=== PATIENT | male | born 2000 | race Caucasian/White ===

== ENCOUNTER 2023-02-15 04:00 | Emergency (ER) | payer SELFPAY ==
[2023-02-15 04:08] VITALS: O2SAT 99
[2023-02-15 04:15] VITALS: BP 136/82; PULSE 125; RESP 16; O2SAT 100
[2023-02-15 04:38] VITALS: O2SAT 100
[2023-02-15 05:03] VITALS: O2SAT 100
[2023-02-15 05:15] VITALS: BP 129/74; PULSE 96; RESP 16; O2SAT 100
[2023-02-15 05:32] VITALS: O2SAT 100
--- NOTE | 2023-02-15 05:41 | ED.WOUNDLAC ---
HPI - Wound/Laceration General Chief Complaint: Wound/Laceration Stated Complaint: laceration Time Seen by Provider: 02/15/23 04:32 History of Present Illness HPI narrative: This is a 22-year-old male, with no significant past medical history, presenting to the emergency department with a laceration to the back of the scalp. The patient states he was playfully wrestling with a friend, when he fell, striking the back of his head on the corner of a table. He did not lose consciousness. He complains of 4/10 occipital scalp pain, described as dull and nonradiating. Related Data Allergies Allergy/AdvReac Type Severity Reaction Status Date / Time No Known Allergies Allergy Verified 02/15/23 04:02 Review of Systems Review of Systems: CONSTITUTIONAL: Denies fever, chills, or sweats. EYES: Denies visual changes, redness, or discharge. CARDIOVASCULAR: Denies chest pain, palpitations, or edema. RESPIRATORY: Denies cough or dyspnea. GASTROINTESTINAL: Denies abdominal pain, nausea, vomiting, or diarrhea. GENITOURINARY: Denies dysuria or hematuria. SKIN: Laceration of scalp denies rash or itching. MUSCULOSKELETAL: Denies back pain, joint pain, or myalgia. NEUROLOGIC: Denies headache, numbness, dizziness, or weakness. PSYCHIATRIC: Denies anxiety or depression. [facility] Past Medical History Medical History (Updated 02/16/23 @ 00:00 by Christopher Christensen) No significant past medical history Surgical History Surgical History (Updated 02/15/23 @ 05:47 by Bobby Bridges MD) No significant past surgical history Social History Social History (Updated 02/15/23 @ 05:47 by Bobby Bridges MD) Smoking status: Never smoker Alcohol intake: never Substance use: never Exam Narrative: GENERAL: Well-developed, well-nourished, and in no acute distress. HEAD: Normocephalic, a 4 cm laceration is noted over the occipital scalp extending through subcutaneous tissue. There does not appear to be interruption of the g[place]. There is no noted foreign objects EYES: PERRLA and EOMI. NECK: Supple. No midline spine tenderness to palpation, no step-off or crepitus CHEST: Clear to auscultation. No respiratory distress. No wheezes rales or rhonchi HEART: Regular rate and rhythm. No murmur heard. Normal peripheral pulses. ABDOMEN: Soft, nontender, nondistended, normal active bowel sounds. EXTREMITIES: Normal range of motion. No edema. SKIN: Warm, dry, no rash. NEURO: Alert and oriented x3. Moving all 4 limbs purposefully. PSYCH: Normal mood and affect. Course Course Emergency Course: 05:35 - Laceration was repaired. Please see procedure note. The patient's exam is reassuring. In the absence of loss of consciousness, my suspicion for intracranial injury is low at this time. The patient's tetanus vaccination is up-to-date. Will discharge. I advised the patient to follow-up in 14 days for staple removal. Discussed return and emergency precautions including signs/symptoms of intracranial hemorrhage and wound infection. The patient voiced understanding and is comfortable with the plan. All questions answered to his satisfaction Vital Signs Vital signs: Vital Signs Pulse Oximetry 99 02/15/23 04:08 Pulse Rate 96 02/15/23 05:15 Respiratory Rate 16 02/15/23 05:15 Blood Pressure 129/74 02/15/23 05:15 Pulse Oximetry 100 02/15/23 05:32 Procedures Laceration Laceration 1: Date: 02/15/23 Time: 05:35 Site: scalp Size (cm): 4 Description: linear and clean Depth: simple, single layer Local Anesthetic: lidocaine 1% and with epi Amount of anesthesia used (mL): 8 Pre-repair: wound explored and irrigated ====== Skin Level ====== Skin layer closed with: juan ramon (8) Technique: simple, interrupted ====== Subcutaneous Layer ====== Subcutaneous layer closed with: vicryl Size: 3-0 Number of sutures: 2 T
[2023-02-15] MEDS: LIDO 1%/EPINEPHRINE 1:100,000 20 ML VIAL INFILTRATE (05:42)
== END 2023-02-15 06:13 | disposition home or self-care (01) ==
PROVIDERS: Emergency Provider Preventive Medicine Aerospace Medicine
DX: S01.01XA Laceration without foreign body of scalp, initial encounter (principal); W01.190A Fall on same level from slipping, tripping and stumbling with subsequent striking against furniture, initial encounter; Y93.83 Activity, rough housing and horseplay
CPT/HCPCS: 12042; 99282

== ENCOUNTER 2023-03-11 15:29 | Emergency (ER) | payer SELFPAY ==
[2023-03-11 15:37] VITALS: BP 113/80; PULSE 87; RESP 20; TEMP 36.6; O2SAT 99
--- NOTE | 2023-03-11 16:12 | ED.WOUNDLAC ---
HPI - Wound/Laceration General Chief Complaint: Wound/Laceration Stated Complaint: Juan Ramon Time Seen by Provider: 03/11/23 16:07 Source: patient Mode of arrival: ambulatory Limitations: no limitations History of Present Illness HPI narrative: 22 year old male who present to express care for removal of juan ramon from the back of his head where he hit it on coffee table 3 weeks ago. Wound appears well approximated with no drainage noted.Patient denies any pain to site with no reported LOC at time of his injury. Wound measures 4cm in length,linear with no redness noted. Onset (ago): week(s) (3) Location: other (back of head) Patient tetanus UTD: Yes Related Data Allergies Allergy/AdvReac Type Severity Reaction Status Date / Time No Known Allergies Allergy Verified 02/15/23 04:02 Review of Systems Review of Systems: CONSTITUTIONAL: Denies fever, chills, or sweats. CARDIOVASCULAR: Denies chest pain, palpitations, or edema. RESPIRATORY: Denies cough or dyspnea. SKIN: Reports juan ramon to back of his head where he hit it on coffee table 3 weeks ago, wound well healed. MUSCULOSKELETAL: Denies musculoskeletal pain NEUROLOGIC: Denies numbness, or weakness. All systems reviewed & are unremarkable except as noted in HPI and below PMFSH Past Medical History Medical History (Updated 03/12/23 @ 00:01 by Christopher Christensen) No significant past medical history Surgical History Surgical History (Updated 02/15/23 @ 05:47 by Bobby Bridges MD) No significant past surgical history Social History Social History (Updated 02/15/23 @ 05:47 by Bobby Bridges MD) Smoking status: Never smoker Alcohol intake: never Substance use: never Comments At time of signature, agree with nursing past medical, surgical, social and family history. There is no relevant family history pertinent to the presenting complaint Exam Narrative: GENERAL: Well-appearing, well-nourished, and in no acute distress. HEAD: Normocephalic, atraumatic. NECK: Supple. CHEST: Clear to auscultation. No respiratory distress.SAO2 99% on room air HEART: Regular rate and rhythm. No murmur heard. Normal peripheral pulses. EXTREMITIES: Normal range of motion. No edema. SKIN: Warm, dry, no rash. Reports no pain to site of juan ramon in the back of his head with wound well approximated with no drainage, denies any headaches or pain at site. NEURO: No focal deficits. Alert and oriented x3. Course Course Level of Care: Express Care Visit Vital Signs Vital signs: Vital Signs Temperature 36.6 C 03/11/23 15:37 Pulse Rate 87 03/11/23 15:37 Respiratory Rate 20 03/11/23 15:37 Blood Pressure 113/80 03/11/23 15:37 Pulse Oximetry 99 03/11/23 15:37 Temperature 36.6 C 03/11/23 15:37 Pulse Rate 87 03/11/23 15:37 Respiratory Rate 20 03/11/23 15:37 Blood Pressure 113/80 03/11/23 15:37 Pulse Oximetry 99 03/11/23 15:37 Procedures Other Procedure Procedure 1: Other Procedure: Using sterile staple remover 7 juan ramon removed from the back of patient's head, he reports that one staple had fallen out already. Patient has well approximated healed wound to the back of his head. MDM - Wound/Laceration Differential Diagnosis Differential diagnosis: Likely laceration (healed, encounter for removal of juan ramon,) Medical Records Attestation: I reviewed the patient's medical records. Critical Care Time Critical Care Time Critical Care Time: No Discharge Plan Discharge Clinical Impression: Encounter for removal of juan ramon Patient Disposition: Home, Self-Care Condition: Stable Instructions: Wound Healing and Your Diet (ED) Additional Instructions: Keep the area clean You may bathe and wash you hair Antibiotic ointment to the area if desired watch for infection--redness, swelling, drainage If your symptoms persist, change or worsen significantly before you can contact your personal physician then please,
== END 2023-03-11 16:22 | disposition home or self-care (01) ==
PROVIDERS: Emergency Provider Registered Nurse
DX: S01.01XD Laceration without foreign body of scalp, subsequent encounter (principal); W22.8XXD Striking against or struck by other objects, subsequent encounter
CPT/HCPCS: 99211; G0463

== ENCOUNTER 2023-06-20 14:31 | Emergency (ER) | payer SELFPAY ==
[2023-06-20 14:42] VITALS: BP 133/83; PULSE 120; RESP 16; TEMP 36.5; O2SAT 100
--- NOTE | 2023-06-20 14:48 | ED.MALEGU ---
HPI - Male Genitourinary General Chief complaint: Urogenital-Male Stated complaint: UTI SYMPTOMS Time Seen by Provider: 06/20/23 14:42 Source: patient and RN notes reviewed Mode of arrival: ambulatory Limitations: no limitations History of Present Illness HPI Narrative: Patient presents today complaining of a one-week history dysuria, urinary frequency, dark and foul smelling urine. He also reports white frothy urethral discharge in the mornings. Denies testicular pain, redness, swelling. He does have unprotected intercourse with his partner, but states he only has 1 partner and as far as he is aware his partner has only him as a sexual partner. Related Data Allergies Allergy/AdvReac Type Severity Reaction Status Date / Time No Known Allergies Allergy Verified 06/20/23 14:38 Review of Systems Review of Systems: CONSTITUTIONAL: Denies body aches, fever, chills, or sweats. EYES: Denies visual changes, redness, or discharge. ENT: Denies rhinorrhea, congestion, sore throat, or otalgia. CARDIOVASCULAR: Denies chest pain, palpitations, or edema. RESPIRATORY: Denies cough or dyspnea. GASTROINTESTINAL: Denies abdominal pain, nausea, vomiting, or diarrhea. GENITOURINARY: + dysuria, frequency, dark and malodorous urine, penile discharge SKIN: Denies rash, itching, or wounds. MUSCULOSKELETAL: Denies back pain, joint pain, or myalgia. NEUROLOGIC: Denies headache, numbness, tingling, or weakness. PSYCH: Denies depression or anxiety. PMFSH Past Medical History Medical History No significant past medical history Surgical History Surgical History No significant past surgical history Social History Social History Smoking status: Never smoker Alcohol intake: never Substance use: never Comments At time of signature, I have reviewed and agree with nursing past medical, surgical, social and family history unless otherwise noted. Please see nursing chart for further information. There is no relevant family history pertinent to the presenting complaint Exam Narrative: GENERAL: Well-appearing, well-nourished, and in no acute distress. HEAD: Normocephalic, atraumatic. EYES: EOMI. No redness or drainage. Conjunctivae normal. ENT: Mucous membranes pink and moist. NECK: Normal AROM. CHEST: No respiratory distress. : deferred EXTREMITIES: Normal range of motion. No edema. SKIN: Warm, dry, no rash. Capillary refill normal. Normal skin turgor. NEURO: No focal deficits. Alert and oriented x3. Gait steady. PSYCH: Normal affect. No signs of depression or anxiety. Course Course Level of Care: Express Care Visit Vital Signs Vital signs: Vital Signs Temperature 97.7 F 06/20/23 14:42 Pulse Rate 120 H 06/20/23 14:42 Respiratory Rate 16 06/20/23 14:42 Blood Pressure 133/83 06/20/23 14:42 Pulse Oximetry 100 06/20/23 14:42 Temperature 97.7 F 06/20/23 14:42 Pulse Rate 104 H 06/20/23 14:57 Respiratory Rate 16 06/20/23 14:42 Blood Pressure 133/83 06/20/23 14:42 Pulse Oximetry 100 06/20/23 14:42 Reviewed MDM - Male Genitourinary MDM Narrative Medical decision making narrative: UA shows trace leukocyte esterace and trace blood which is nonspecific. Culture pending. Gonorrhea, Trichomonas, and chlamydia pending as well. Patient is given a dose of Rocephin at Urgent Care, and prescription for doxycycline and Flagyl sent to pharmacy. Anticipatory guidance given. Differential Diagnosis Differential diagnosis: Likely urinary tract infection, urethritis and other (Gonorrhea, chlamydia, Trichomonas) Lab Data Attestation: I reviewed the patient's lab results. Labs: Urine Glucose Negative Reference Range: Negative Urine Bilirubin
[2023-06-20 14:57] VITALS: PULSE 104
[2023-06-20] MEDS: cefTRIAXone 500 MG, LIDOCAINE HCL 1% LOCAL INJ 1 ML IM (15:03)
[2023-06-20 20:06] LABS: Trichomonas Vag PCR NOT DETECTED (NOT DETECTE)
[2023-06-20 20:34] LABS: Chlamydia trachomatis NOT DETECTED (NOT DETECTE); Neisseria gonorrhoeae PCR NOT DETECTED (NOT DETECTE)
== END 2023-06-20 15:15 | disposition home or self-care (01) ==
PROVIDERS: Emergency Provider Nurse Practitioner
DX: R30.0 Dysuria (principal); R35.0 Frequency of micturition
CPT/HCPCS: 81003; 87086; 87491; 87591; 87661; 96372; 99213; G0463; J0696

== ENCOUNTER 2023-10-11 11:54 | Emergency (ER) | payer SELFPAY ==
--- NOTE | 2023-10-11 12:05 | ED.WOUNDLAC ---
HPI - Wound/Laceration General Chief Complaint: Wound/Laceration Stated Complaint: Cut Rt Upper Lip Time Seen by Provider: 10/11/23 12:05 Source: patient, RN notes reviewed and old records reviewed Mode of arrival: ambulatory Limitations: no limitations History of Present Illness HPI narrative: 23-year-old male to Express Care for complaint laceration to right upper lip that occurred approximately 1 hour prior to arrival. Patient states that he was playing flag football and caught an elbow to his mouth. Patient declines LOC, dizziness, nausea, visual changes. No active bleeding in exam room. Patient calm and cooperative. .5 cm lac through ro[place] border on right upper lip. Patient advised that he likely needs transfer to ED for further evaluation and sutures. Patient verbalized understanding. Related Data Home Medications Medication Instructions Recorded Confirmed No Home Medications 10/11/23 10/11/23 Allergies Allergy/AdvReac Type Severity Reaction Status Date / Time No Known Allergies Allergy Verified 10/11/23 12:21 Review of Systems Review of Systems: All systems reviewed & are unremarkable except as noted in HPI and below Constitutional: Constitutional: Reports no additional constitutional complaints Eyes: Eyes: Reports no additional eye complaints ENT: Reports system reviewed and no additional complaints, except as documented Cardiovascular: Cardiovascular: Reports no additional cardiovascular complaints, Denies chest pain and Denies dyspnea Respiratory: Respiratory: Reports no additional respiratory complaints, Denies cough and Denies dyspnea Musculoskeletal: Musculoskeletal: Reports no additional musculoskeletal complaints Integumentary/Breasts: Skin/Breast: Reports as per HPI and Reports wounds (lac to right upper lip) Neurologic: Reports system reviewed and no additional complaints, except as documented Psychiatric: Psychiatric: Reports no additional psychiatric complaints [facility] Past Medical History Medical History No significant past medical history Surgical History Surgical History No significant past surgical history Social History Social History Smoking status: Never smoker Alcohol intake: never Substance use: never Comments At the time of my signature, I reviewed and agree with the nursing past medical, surgical, social, and family history. There is no relevant family history pertinent to the patient complaint. Exam Const: General: cooperative, healthy appearing, comfortable, no acute distress, alert and well nourished Nutritional Appearance: well nourished Orientation/consciousness: patient oriented x3 Limitations: no limitations HENMT: Head: normal to inspection Ears: external ears normal Face/Nose/Sinus: Normal external nose present, Normal nares present, normal facial exam, No erythema and No edema Face and sinus: normal facial exam, no erythema and no edema Mouth: Yes Normal oral and palatal mucosa present and No drooling Teeth and gingiva: dentition normal, fair dentition and other (no loose teeth on exam) Throat: posterior oropharynx normal Eyes: General: appearance normal, both eyes and all related structures Neck: Neck: normal visual inspection, full ROM and no meningeal signs Lymphatic: no lymphadenopathy noted and no lymphedema noted Chest: Chest palpation & inspection: normal inspection of the chest Resp: Effort & Inspection: normal respiratory effort and able to speak in complete sentences Cardio: Jugular venous distension: no JVD Rate: regular rate Rhythm: regular rhythm Back/Spine/Pelvis: Cervical Spine: cervical ROM normal Skin: General skin exam: normal color and laceration (.5 lac to right upper lip through roxanna border) Neuro: General: patient or
[2023-10-11 12:06] VITALS: BP 130/86; PULSE 102; RESP 16; TEMP 36.6; O2SAT 99
--- NOTE | 2023-10-11 12:21 | PC.NURSE ---
1220- [employer] talking to [facility] since no plastics coverage.
== END 2023-10-11 12:25 | disposition short-term general hospital (02) ==
LOC: EXPGOSH 11:56
PROVIDERS: Emergency Provider Nurse Practitioner Family
DX: S01.511A Laceration without foreign body of lip, initial encounter (principal); W50.0XXA Accidental hit or strike by another person, initial encounter; Y93.62 Activity, american flag or touch football
CPT/HCPCS: 99212; G0463

== ENCOUNTER 2023-10-11 12:47 | Emergency (ER) | payer SELFPAY ==
[2023-10-11 12:51] VITALS: BP 137/89; PULSE 98; RESP 18; O2SAT 96
[2023-10-11] MEDS: AMOXICILLIN/CLAVULANATE K 875-125 MG TAB 1 TABLET PO (14:20)
--- NOTE | 2023-10-11 14:45 | ED.WOUNDLAC ---
HPI - Wound/Laceration General Chief Complaint: Wound/Laceration Stated Complaint: lip lac, sent from Time Seen by Provider: 10/11/23 13:57 Source: patient Mode of arrival: ambulatory Limitations: no limitations History of Present Illness HPI narrative: Patient is a 23-year-old male who presents the ED with report of a laceration to his right upper lip. Patient reports he was playing flag football earlier today when he was accidentally elbowed by another player. Sustained a small laceration to his right upper lateral lip. Does cross the [place] border. Was seen in urgent care and sent here for further evaluation. Tetanus up-to-date. No other injuries. He did not fall and hit his head. No LOC. No significant pain. Related Data Allergies Allergy/AdvReac Type Severity Reaction Status Date / Time No Known Allergies Allergy Verified 10/11/23 12:51 Review of Systems Review of Systems: CONSTITUTIONAL: Denies fever, chills, or sweats. ENT: See HPI. NEUROLOGIC: Denies headache, dizziness, numbness, or weakness. All systems reviewed & are unremarkable except as noted in HPI and below PMFSH Past Medical History Medical History No significant past medical history Surgical History Surgical History No significant past surgical history Social History Social History Smoking status: Never smoker Alcohol intake: never Substance use: never Exam Narrative: GENERAL: Well appearing, well-nourished, non-toxic, in no acute distress. HEAD: Normocephalic, atraumatic. ENT: 0.5cm linear laceration through R upper lateral lip, crosses roxanna border. No active bleeding. Small contusion and pinpoint area of laceration to inner upper lip mucosa. No gaping nature of inner lip laceration. No trismus or stridor. RESPIRATORY: Airway patent, respirations nonlabored. CARDIOVASCULAR: Regular rate and rhythm MUSCULOSKELETAL: Moves all extremities. No gross deformities. SKIN: Warm, dry, normal color. NEURO: A&O X3. Speech clear. PSYCHIATRIC: Appropriate mood and affect. Normal interaction. HENMT: Nose image: 1. laceration Course Vital Signs Vital signs: Vital Signs Pulse Rate 98 10/11/23 12:51 Respiratory Rate 18 10/11/23 12:51 Blood Pressure 137/89 10/11/23 12:51 Pulse Oximetry 96 10/11/23 12:51 Pulse Rate 98 10/11/23 12:51 Respiratory Rate 18 10/11/23 12:51 Blood Pressure 137/89 10/11/23 12:51 Pulse Oximetry 96 10/11/23 12:51 Procedures Laceration Laceration 1: Date: 10/11/23 Time: 14:35 Site: lip Side (If applicable): right Size (cm): 0.5 Description: linear Depth: simple, single layer Local Anesthetic: lidocaine 1% Amount of anesthesia used (mL): 5 Pre-repair: wound explored and irrigated ====== Skin Level ====== Skin layer closed with: other (fast absorbing gut) Size (cm): 5-0 Number of sutures: 3 Technique: simple, interrupted ====== Subcutaneous Layer ====== ====== Muscle Layer ====== ====== Tendon Layer ====== MDM - Wound/Laceration MDM Narrative Medical decision making narrative: Laceration repaired without complications. Tetanus up-to-date. Patient will be placed on short course of Augmentin given oral mucosal involvement. Given wound care instructions and return precautions. Discharged in stable condition. Medical Records Attestation: I reviewed the patient's medical records. Discharge Plan Discharge Clinical Impression: Laceration of lip Qualifiers: Encounter type: initial encounter Qualified Code(s): S01.511A - Laceration without foreign body of lip, initial encounter Patient Disposition: Home, Self-Care Condition: Stable Instructions: An
== END 2023-10-11 15:06 | disposition home or self-care (01) ==
PROVIDERS: Emergency Provider Physician Assistant
DX: S01.511A Laceration without foreign body of lip, initial encounter (principal); W51.XXXA Accidental striking against or bumped into by another person, initial encounter
CPT/HCPCS: 12011; 99283; A9270